=== PATIENT | female | born 1950 ===

== ENCOUNTER 2019-10-01 07:22 | Day surgery (SDC) | payer OTHER | END 2019-10-01 12:38 | disposition home or self-care (01) | LOC: AMB-ENDOS 07:22 → ADM 13:15 → AMB-ENDOS 13:15 | DX: K57.32 Diverticulitis of large intestine without perforation or abscess without bleeding (principal); K57.30 Diverticulosis of large intestine without perforation or abscess without bleeding; K64.1 Second degree hemorrhoids ==